=== PATIENT | female | born 1970 | race Caucasian/White ===

== ENCOUNTER 2021-02-24 09:31 | Emergency (ER) | payer OTHER ==
--- NOTE | 2021-02-24 11:08 | EDM.PDOC ---
ED HPI GENERAL MEDICAL PROBLEM - General Chief Complaint: ENT Problem Stated Complaint: PROBLEMS WITH SINUS AND EARS Time Seen by Provider: 02/24/21 10:50 Source of Information: Reports: Patient History Limitations: Reports: No Limitations - History of Present Illness INITIAL COMMENTS - FREE TEXT/NARRATIVE: 50 yo female presenting to ER with face pressure, full ears, vertigo and headache. She was treated for sinus infection with a 5 day course of antibiotics that brought some relief. She is visiting the area from [facility]. She has been taking sinus cold ever 6 hours with little relief. sinus pressure and headache. post nasal drip. Last evening she had mild nausea without emesis. denies cough, SOB, sore throat or fever. present today with her daughter Face/Facial Pain Score (Numeric/FACES): 5 - Related Data Allergies Allergy/AdvReac Type Severity Reaction Status Date / Time No Known Allergies Allergy Verified 02/24/21 10:26 Home Meds: Home Meds NK [No Known Home Meds] 02/24/21 [History] Past Medical History [employer] History: Reports: Social & Family History - Tobacco Use Tobacco Use Status *Q: Current Every Day Tobacco User Years of Tobacco use: 45 Packs/Tins Daily: 0.5 - Caffeine Use Caffeine Use: Reports: Coffee - Alcohol Use Days Per Week of Alcohol Use: 7 Number of Drinks Per Day: 2 Total Drinks Per Week: 14 - Recreational Drug Use Recreational Drug Use: No ED ROS ENT - Review of Systems Review Of Systems: See Below Constitutional: Denies: Fever, Chills, Fatigue HEENT: Reports: Rhinitis, Sinus Problem. Denies: Throat Pain Respiratory: Denies: Shortness of Breath, Wheezing Cardiovascular: Denies: Chest Pain Endocrine: Denies: Fatigue GI/Abdominal: Reports: Nausea ED EXAM, ENT - Physical Exam Exam: See Below Exam Limited By: No Limitations General Appearance: Alert, WD/WN, No Apparent Distress Eye Exam: Bilateral Eye: EOMI, PERRL Ears: Normal External Exam, Normal Canal, Hearing Grossly Normal, Normal TMs, TM Dullness, TM Fluid Nose: Other (moderate reythema with moderate boggy edema) Mouth/Throat: Normal Inspection, Normal Gums, Normal Lips, Normal Oropharynx, Normal Teeth Head: Atraumatic, Normocephalic Neck: Supple, Non-Tender, Full Range of Motion, Lymphadenopathy (R), Lymphadenopathy (L) Respiratory/Chest: No Respiratory Distress, Lungs Clear, Normal Breath Sounds, No Accessory Muscle Use, Chest Non-Tender Cardiovascular: Normal Peripheral Pulses, Regular Rate, Rhythm, No Edema GI/Abdominal: Soft, Non-Tender Course - Vital Signs Last Recorded V/S: Last Vital Signs Temp 36.6 C 02/24/21 10:31 Pulse 81 02/24/21 10:31 Resp 18 02/24/21 10:31 BP 116/85 02/24/21 10:31 Pulse Ox 95 02/24/21 10:31 Departure - Departure Time of Disposition: 11:06 Disposition: Home, Self-Care 01 Condition: Good Clinical Impression: Vertigo Eustachian tube dysfunction Qualifiers: Laterality: bilateral Qualified Code(s): H69.83 - Other specified disorders of Eustachian tube, bilateral - Discharge Information *PRESCRIPTION DRUG MONITORING PROGRAM REVIEWED*: Not Applicable *COPY OF PRESCRIPTION DRUG MONITORING REPORT IN PATIENT MADIE: Not Applicable Instructions: Vertigo, [id number] Referrals: PCP,None [Primary Care Provider] - Forms: ED Department Discharge Additional Instructions: prednisone 100 mg tablets tapering dose for 2 weeks Take 4 tab PO for 3 days 3 tab for 3days 2 tab for 3 days 1 tab for 3 days Over the counter sinus medication fluid intake with goal of 1.5 liters per day Sepsis Event Note (ED) - Evaluation Sepsis Screening Result: No Definite Risk - Focused Exam Vital Signs: Vital Signs Temp Pulse Resp BP Pulse Ox 02/24/21 10:31 36.6 C 81 18 116/85 95 02/24/21 10:23 36.6 C 81 18 116/85 95
== END 2021-02-24 11:31 | disposition home or self-care (01) ==
LOC: JP.ED 09:31
DX: H69.83 Other specified disorders of Eustachian tube, bilateral (principal); R42 Dizziness and giddiness; F17.210 Nicotine dependence, cigarettes, uncomplicated
CPT/HCPCS: 99283